=== PATIENT | female | born 2005 | race Caucasian/White ===

== ENCOUNTER 2025-01-16 20:46 | Emergency (ER) | payer OTHER ==
[2025-01-16 21:07] VITALS: BP 113/73; PULSE 69; RESP 16; TEMP 97.9
[2025-01-16] MEDS ORDERED: IBUPROFEN 600 MG TABLET (FP) PO ONE (21:11)
[2025-01-16] MEDS ORDERED: SULFAMETHOXAZOLE/TRIMETHOPRIM 800MG/160MG D.S. TABLET ONE (21:12)
[2025-01-16] MEDS: SULFAMETHOXAZOLE/TRIMETHOPRIM 800MG/160MG D.S. TABLET PO ONE (21:15)
[2025-01-16] MEDS: IBUPROFEN 600 MG TABLET (FP) PO ONE (21:15)
== END 2025-01-16 21:23 | disposition home or self-care (01) ==
LOC: FER 20:46
DX: L03.115 Cellulitis of right lower limb (principal)
CPT/HCPCS: 99283-25